=== PATIENT | male | born 1990 | race Caucasian/White ===

== ENCOUNTER 2020-05-03 15:02 | Inpatient (IN) ==
--- NOTE | 2020-05-03 15:32 | Emergency Department Note ---
Impression & Plan Suicidal ideation, History of ETOH abuse, COVID-19, Elevated blood pressure reading ED Provider Note NAME: TRACI INMAN AGE: 30 SEX: M : 1990 ARRIVES VIA: Walk-In INFORMANT: Patient ED PROVIDER(S): French Caceres DO CHIEF COMPLAINT: Suicidal ideations HPI: Patient is a 30-year-old male who presents ER for suicidal thoughts. He notes he stopped drinking about 2 months ago and his fiance left him with his kids about 3 weeks ago. He has been gradually getting more depressed. He has a plan to overdose with sleeping pills and alcohol. He denies any headache or change in vision. No chest pain or shortness of breath. No belly pain, nausea, vomiting or diarrhea. No other exacerbating or remitting factors. He does want to come in for further work-up. ROS: See above HPI for pertinent positives & negatives. A total of 10 systems reviewed and were otherwise negative. PAST MEDICAL HISTORY:See Below PAST SURGICAL HISTORY:See Below FAMILY HISTORY:See Below SOCIAL HISTORY:See Below HOME MEDICATIONS:See Below ALLERGIES:See Below VITALS:See Below PHYSICAL EXAMINATION: GENERAL: Sitting up in bed, alert, well appearing, well nourished, no distress, non-toxic EYE EXAM: normal conjunctiva. OROPHARYNX: no exudate, no erythema, lips, buccal mucosa, and tongue normal and mucous membranes are moist NECK: supple, no nuchal rigidity, no adenopathy, non-tender LUNGS: Clear to auscultation. Normal chest wall mechanics HEART: no murmurs, S1 normal and S2 normal ABDOMEN: abdomen soft, non-tender, normo-active bowel sounds, no masses, no rebound or guarding. UPPER EXTREMITIES: upper extremities are grossly normal. LOWER EXTREMITIES: No pitting edema. NEURO EXAM: Normal sensorium, cranial nerves II-XII grossly intact, normal speech, no gross weakness of arms, no gross weakness of legs. PSYCH: Admits to suicidal ideations with a plan to overdose on alcohol and sleeping pills MEDICAL DECISION MAKING: Patient is a 30-year-old male who presents ER for suicidal plan. Labs were obtained and showed no significant leukocytosis or anemia. BMP with slightly elevated chloride. LFTs bilirubin and TSH was unremarkable. Urine was negative. Salicylates were slightly elevated 2.3. Acetaminophen was negative. Covid was positive. Marijuana was positive. Patient initially would prefer to go home but was agreeable to coming in after further discussion as he did have suicidal thoughts with a clear plan and has thought it through. Patient however cannot go to the psych floor as he is Covid positive and will be admitted to medicine. Discussed with Dr. Busby for further evaluation. Triage Nursing notes reviewed. Limited review of prior medical records performed Vital Signs: reviewed and remarkable for HTN Differential diagnosis: Mood disorder, infection, hypoglycemia, electrolyte abnormalities, cardiac sources, intracerebral event, toxicologic, trauma, neurologic, as well as other pathologies. ER treatment provided: See below Diagnostics interpreted by me: ECG: none Laboratory studies: As stated above and show below. Imaging studies: none Consultation(s): Discussed with Dr. 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 Required: No Beliefs That Will Affect Care: None marital status: Single Current Living Situation: Spouse current occupational status: employed How many Children do You have: 2 Feels Safe at Home: Yes Assistive Devices: None Allergies Allergies Allergy/AdvReac Type Severity Reaction Status Date / Time No Known Allergies Unverified 05/03/20 16:26 Home Meds Home Medications Medication Instructions Recorded Confirmed No Known Home Medications 05/03/20 05/03/20 Results & Data (ED) Vital Signs Vital Signs - 24 hr 05/03/20 15:13 Temperature 37.3 C Temperature Source Oral Pulse Rate 90 Respiratory Rate 18 Respiratory Effort / Characteristics Non-Labored Spontaneous Respiratory Depth Normal Blood Pressure 163/103 H Blood Pressure Mean 123 Blood Pressure Position Sitting Pulse Oximetry 98 Oxygen Delivery Method Room Air Sepsis Recent Fever Within 48 Hours No Sepsis New/Unexplained Change in Mental Status No Sepsis Action Taken by Nursing No Action Required Laboratory Data Result diagrams: 05/03/20 16:17 05/03/20 16:17 Lab Results 05/03/20 05/03/20 05/03/20 Range/Units 15:30 15:30 15:52 WBC (4.8-10.8) K/uL RBC (4.7-6.1) M/uL Hgb (14.0-18.0) g/dL Hct (42-52) % MCV (80-100) fL MCH (25-34) pg MCHC (32-36) g/dL RDW Std Deviation (36.4-46.3) fL RDW Coeff of Meño (11.5-14.5) % Plt Count (130-400) K/uL MPV (7.4-10.4) fL Immature Gran % (Auto) % Neut % (Auto) % Lymph % (Auto) % [place] % (Auto) % Eos % (Auto) % Baso % (Auto) % Neut # (Auto) (1.4-6.5) K/uL Lymph # (Auto) (1.2-3.4) K/uL [place] # (Auto) (0.11-0.59) K/uL Eos # (Auto) (0-0.5) K/uL Baso # (Auto) (0-0.2) K/uL Immature Gran # (Auto) (0.00-0.02) K/uL Sodium (136-145) mmol/L Potassium (3.5-5.1) mmol/L Chloride (98-107) mmol/L Carbon Dioxide (21-32) mmol/L Anion Gap (3-11) BUN (7-18) mg/dl Creatinine (0.6-1.4) mg/dl Est Cr Clr Drug Dosing ml/min Est GFR ( Amer) Est GFR (Non-Af Amer) BUN/Creatinine Ratio (10-20) Glucose (70-99) mg/dl Calcium (8.5-10.1) mg/dl Total Bilirubin (0.2-1) mg/dl AST (15-37) U/L ALT (12-78) U/L Alkaline Phosphatase (45-117) U/L Total Protein (6.4-8.2) gm/dl Albumin (3.4-5.0) gm/dl Globulin (2.5-4.0) gm/dl Albumin/Globulin Ratio (0.9-2) TSH (0.300-4.500) uIu/ml Urine Color Yellow Urine Appearance Clear (Clear) Urine pH 7.0 (4.5-7.5) Ur Specific [place] 1.015 (1.000-1.030) Urine Protein Negative (Negative) Urine Glucose (UA) Negative (Negative) Urine Ketones 1+ H (Negative) Urine Blood Negative (Negative) Urine Nitrite Negative (Negative) Urine Bilirubin Negative (Negative) Urine Urobilinogen Negative (Negative) Ur Leukocyte Esterase Negative (Negative) Salicylates (2.8-20) mg/dl Urine Opiates Screen Neg (Neg) Ur Methadone, Qual Neg (Neg) Acetaminophen (10-30) ug/ml Urine Barbiturates Neg (Neg) Ur Phencyclidine (PCP) Neg (Neg) U Amphetamin/Meth Scrn Neg (Neg) MDMA (Ecstasy) Screen Neg (Neg) U Benzodiazepines Scrn Neg (Neg) Ur Cocaine Metabolite Neg (Neg) U Marijuana (THC) Screen Pos H (Neg) Ethyl Alcohol mg/dL (0-3) mg/dl SARS-CoV-2, RNA, NAAT POSITIVE A* (NEGATIVE) 05/03/20 05/03/20 05/03/20 Range/Units 16:17 16:17 16:17 WBC 4.93 (4.8-10.8) K/uL RBC 5.30 (4.7-6.1) M/uL Hgb 16.4 (14.0-18.0) g/dL Hct 47.0 (42-52) % MCV 88.7 (80-100) fL MCH 30.9 (25-34) pg MCHC 34.9 (32-36) g/dL RDW Std Deviation 39.6 (36.4-46.3) fL RDW Coeff of Meño 12.3 (11.5-14.5) % Plt Count 210 (130-400) K/uL MPV 9.9 (7.4-10.4) fL Immature Gran % (Auto) 0.2 % Neut % (Auto) 58.0 % Lymph % (Auto) 26.0 % [place] % (Auto) 15.6 % Eos % (Auto) 0.0 % Baso % (Auto) 0.2 % Neut # (Auto) 2.86 (1.4-6.5) K/uL Lymph # (Auto) 1.28 (1.2-3.4) K/uL [place] # (Auto) 0.77 H (0.11-0.59) K/uL Eos # (Auto) 0.00 (0-0.5) K/uL Baso # (Auto) 0.01 (0-0.2) K/uL Immature Gran # (Auto) 0.01 (0.00-0.02) K/uL Sodium 141 (136-145) mmol/L Potassium 3.7 (3.5-5.1) mmol/L Chloride 108 H (98-107) mmol/L Carbon Dioxide 26 (21-32) mmol/L Anion Gap 7.0 (3-11) BUN 11 (7-18) mg/dl Creatinine 0.99 (0.6-1.4) mg/dl Est Cr Clr Drug Dosing 131.1 ml/min Est GFR ( Amer) 118.0 Est GFR (Non-Af Amer) 101.8 BUN/Creatinine Ratio 11.0 (10-20) Glucose 98 (70-99) mg/dl Calcium 9.1 (8.5-10.1) mg/dl Total Bilirubin 0.4 (0.2-1) mg/dl AST 25 (15-37) U/L ALT 52 (12-78) U/L Alkaline Phosphatase 90 (45-117) U/L Total Protein 8.4 H (6.4-8.2) gm/dl Albumin 4.7 (3.4-5.0) gm/dl Globulin 3.7 (2.5-4.0) gm/dl Albumin/Globulin Ratio 1.3 (0.9-2) TSH 2.050 (0.300-4.500) uIu/ml Urine Color Urine Appearance (Clear) Urine pH (4.5-7.5) Ur Specific [place] (1.000-1.030) Urine Protein (Negative) Urine Glucose (UA) (Negative) Urine Ketones (Negative) Urine Blood (Negative) Urine Nitrite (Negative) Urine Bilirubin (Negative) Urine Urobilinogen (Negative) Ur Leukocyte Esterase (Negative) Salicylates 2.3 L (2.8-20) mg/dl Urine Opiates Screen (Neg) Ur Methadone, Qual (Neg) Acetaminophen < 2 L (10-30) ug/ml Urine Barbiturates (Neg) Ur Phencyclidine (PCP) (Neg) U Amphetamin/Meth Scrn (Neg) MDMA (Ecstasy) Screen (Neg) U Benzodiazepines Scrn (Neg) Ur Cocaine Metabolite (Neg) U Marijuana (THC) Screen (Neg) Ethyl Alcohol mg/dL (0-3) mg/dl SARS-CoV-2, RNA, NAAT (NEGATIVE) 05/03/20 Range/Units 16:17 WBC (4.8-10.8) K/uL RBC (4.7-6.1) M/uL Hgb (14.0-18.0) g/dL Hct (42-52) % MCV (80-100) fL MCH (25-34) pg MCHC (32-36) g/dL RDW Std Deviation (36.4-46.3) fL RDW Coeff of Meño (11.5-14.5) % Plt Count (130-400) K/uL MPV (7.4-10.4) fL Immature Gran % (Auto) % Neut % (Auto) % Lymph % (Auto) % [place] % (Auto) % Eos % (Auto) % Baso % (Auto) % Neut # (Auto) (1.4-6.5) K/uL Lymph # (Auto) (1.2-3.4) K/uL [place] # (Auto) (0.11-0.59) K/uL Eos # (Auto) (0-0.5) K/uL Baso # (Auto) (0-0.2) K/uL Immature Gran # (Auto) (0.00-0.02) K/uL Sodium (136-145) mmol/L Potassium (3.5-5.1) mmol/L Chloride (98-107) mmol/L Carbon Dioxide (21-32) mmol/L Anion Gap (3-11) BUN (7-18) mg/dl Creatinine (0.6-1.4) mg/dl Est Cr Clr Drug Dosing ml/min Est GFR ( Amer) Est GFR (Non-Af Amer) BUN/Creatinine Ratio (10-20) Glucose (70-99) mg/dl Calcium (8.5-10.1) mg/dl Total Bilirubin (0.2-1) mg/dl AST (15-37) U/L ALT (12-78) U/L Alkaline Phosphatase (45-117) U/L Total Protein (6.4-8.2) gm/dl Albumin (3.4-5.0) gm/dl Globulin (2.5-4.0) gm/dl Albumin/Globulin Ratio (0.9-2) TSH (0.300-4.500) uIu/ml Urine Color Urine Appearance (Clear) Urine pH (4.5-7.5) Ur Specific [place] (1.000-1.030) Urine Protein (Negative) Urine Glucose (UA) (Negative) Urine Ketones (Negative) Urine Blood (Negative) Urine Nitrite (Negative) Urine Bilirubin (Negative) Urine Urobilinogen (Negative) Ur Leukocyte Esterase (Negative) Salicylates (2.8-20) mg/dl Urine Opiates Screen (Neg) Ur Methadone, Qual (Neg) Acetaminophen (10-30) ug/ml Urine Barbiturates (Neg) Ur Phencyclidine (PCP) (Neg) U Amphetamin/Meth Scrn (Neg) MDMA (Ecstasy) Screen (Neg) U Benzodiazepines Scrn (Neg) Ur Cocaine Metabolite (Neg) U Marijuana (THC) Screen (Neg) Ethyl Alcohol mg/dL < 3.0 (0-3) mg/dl SARS-CoV-2, RNA, NAAT (NEGATIVE) Administered Medications Discontinued Medications Amlodipine Besylate (Amlodipine Besylate 5 Mg Tab) 5 mg PO NOW ONE Stop: 05/03/20 18:15 Last Admin: 05/03/20 19:02 Dose: Not Given Documented by: [id number] Discharge Plan Visit Data Chief Complaint: Mental Health Evaluation Stated Complaint: [facility] ED Provider: French Caceres Discharge Problem: Suicidal ideation, History of ETOH abuse, COVID-19, Elevated blood pressure reading
[2020-05-03 15:45] LABS: Appearance Urine Clear (Clear); Bilirubin Urine Negative (Negative); Blood Urine Negative (Negative); Color Urine Yellow; Glucose Urine UA Negative (Negative); Ketones Urine 1+ (Negative); Leukocyte Esterase Urine Negative (Negative); Nitrite Urine Negative (Negative); Protein Urine Negative (Negative); Specific Gravity Urine 1.015 (1.000-1.030); Urobilinogen Urine Negative (Negative)
[2020-05-03 16:06] LABS: Amphetamines+Metham, Urine Neg (Neg); Barbiturates, Urine Neg (Neg); Benzodiazepine, Urine Neg (Neg); Cocaine, Urine Neg (Neg); MDMA (Ecstacy), Urine Neg (Neg); Methadone, Urine Neg (Neg); Opiate, Urine Neg (Neg); Phencyclidine, Urine Neg (Neg)
[2020-05-03 16:31] LABS: Basophils # (auto) 0.01 K/uL (0-0.2); Basophils % (auto) 0.2 %; Hemoglobin 16.4 g/dL (14.0-18.0); Immature Granulocytes # (auto) 0.01 K/uL (0.00-0.02); Immature Granulocytes % (auto) 0.2 %; Lymphocytes # (auto) 1.28 K/uL (1.2-3.4); Mean Corpuscular Hemoglobin 30.9 pg (25-34); Mean Corpuscular Hgb Conc 34.9 g/dL (32-36); Mean Corpuscular Volume 88.7 fL (80-100); Mean Platelet Volume 9.9 fL (7.4-10.4); Monocytes # (auto) 0.77 K/uL (0.11-0.59); Monocytes % (auto) 15.6 %; Neutrophils # (auto) 2.86 K/uL (1.4-6.5); Platelet Count 210 K/uL (130-400); RDW Coefficient of Variation 12.3 % (11.5-14.5); RDW Standard Deviation 39.6 fL (36.4-46.3); White Blood Count 4.93 K/uL (4.8-10.8)
[2020-05-03 16:52] LABS: Albumin Level 4.7 gm/dl (3.4-5.0); Calcium 9.1 mg/dl (8.5-10.1); Creatinine Clr Calc Pharmacy 131.1 ml/min; Est GFR (Non-African American) 101.8; Potassium 3.7 mmol/L (3.5-5.1)
[2020-05-03 16:59] LABS: Acetaminophen < 2 ug/ml (10-30); Salicylate 2.3 mg/dl (2.8-20)
[2020-05-03 17:02] LABS: Albumin Globulin Ratio 1.3 (0.9-2); Bilirubin,Total 0.4 mg/dl (0.2-1); Globulin 3.7 gm/dl (2.5-4.0); Thyroid Stimulating Hormone 2.05 uIu/ml (0.300-4.500); Total Protein 8.4 gm/dl (6.4-8.2)
--- NOTE | 2020-05-03 17:09 | History & Physical Report ---
Date of Service May 03, 2020 Assessment & Plan (1) COVID-19: (2) Suicidal ideation: (3) History of ETOH abuse: (4) Depression: (5) Elevated blood pressure reading: (6) Attention deficit hyperactivity disorder: This is a 30 year old M with significant PMH of ADHD and alcohol abuse who presents to ED 2/2 to suicidal ideations x 1 day. admit to med/surg no active covid sx - monitor vital signs q shift and pulse ox covid and suicide precautions consult psych - Dr. Schaeffer one to one observation Pt BP is elevated - per outpt record BP in office 04/2019 140-50/90s currently not on any medications add prn clonidine 0.1mg tid if SBP > 170/DBP > 100 may be in setting of anxiousness FULL CODE Disposition: admit to med/surg given +covid status Follow up: PCP Dr. Ramírez upon discharge Pt was seen and examined in collaboration with Dr. Busby, please see addendum History of Present Illness Chief Complaint: suicidal ideations x 1 day. Primary Care Provider: Etienne Ramírez MD This is a 30 year old M with significant PMH of ADHD and alcohol abuse who presents to ED 2/2 to suicidal ideations x 1 day. He has been undergoing a lot of stress and recently became more depressed. His last alcoholic drink was 2 months ago. Recently his fiance left him as well as his kids. Continuing to get more depressed. His plan would be to, "take a bunch of sleeping pills and alcohol." He has never felt like this in the past. He denies any recent illness, f/c/s, chest pain, sob, cough, n/v/d, abdominal pain, change in bowel or urinary habits. In ED he did test positive for SARS-COV2. Hospitalist service requested to admit due to +Covid. Lab work up unremarkable with CBC, CMP and TSH, but urine +THC. Of significance pt has an aversion to medications. States he medicates with marijuana. Has daily headaches. Hx of HTN in the past and his mother used to, "push meds." Is refusing to take medications. Allergies Allergy/AdvReac Type Severity Reaction Status Date / Time No Known Allergies Unverified 05/03/20 16:26 Home Medications Medication Instructions Recorded Confirmed Type No Known Home Medications 05/03/20 05/03/20 History Past Med/Surg History Medical History (Updated 05/03/20 @ 17:49 by Lynn Magana PA-C) Attention deficit disorder Surgical History History of tooth extraction wisdom teeth Family History (Updated 05/03/20 @ 17:04 by Lynn Magana PA-C) Other Hypertension Social History Smoking Status: Never smoker Second Hand Exposure: No; Hx Alcohol Use: Yes Alcohol type: beer Hx Substance Use: Yes Substance Use Type Other:: smokes marijuana daily Preferred Language: Tongan Communication Ability: Effective Parts Cataloger Required: No Beliefs That Will Affect Care: None marital status: Single Current Living Situation: Spouse current occupational status: employed How many Children do You have: 2 Feels Safe at Home: Yes Assistive Devices: None Review of Systems Review of Systems: All systems reviewed & are unremarkable except as noted in HPI & below Physical Exam Physical Exam: please refer to Dr. Busby addendum for physical exam findings Results & Data Results & Data ([facility]) Vital Signs (Past 12 Hours) Vital Signs Temp Pulse Resp BP Pulse Ox 05/03/20 15:13 37.3 C 90 18 163/103 H 98 COVID-19 Results Results COV- Lab Results: RBC 5.30 M/uL (4.7-6.1) 05/03/20 WBC 4.93 K/uL (4.8-10.8) 05/03/20 Hgb 16.4 g/dL (14.0-18.0) 05/03/20 Hct 47.0 % (42-52) 05/03/20 Plt Count 210 K/uL (130-400) 05/03/20 Neutrophils (%) (Auto) 58.0 % 05/03/20 Lymphocytes (%) (Auto) 26.0 % 05/03/20 Monocytes # (Auto) 0.77 K/uL (0.11-0.59) H 05/03/20 Eosinophils # (Auto) 0.00 K/uL (0-0.5) 05/03/20 Immature Granulocyte % (Auto) 0.2 % 05/03/20 Neutrophils # (Auto) 2.86 K/uL (1.4-6.5) 05/03/20 Lymphocytes # (Auto) 1.28 K/uL (1.2-3.4) 05/03/20 Monocytes # (Auto) 0.77 K/uL (0.11-0.59) H 05/03/20 Eosinophils # (Auto) 0.00 K/uL (0-0.5) 05/03/20 Basophils # (Auto) 0.01 K/uL (0-0.2) 05/03/20 Immature Granulocyte # (Auto) 0.01 K/uL (0.00-0.02) 05/03/20 Na 141 mmol/L (136-145) 05/03/20 K 3.7 mmol/L (3.5-5.1) 05/03/20 Cl 108 mmol/L (98-107) H 05/03/20 CO2 26 mmol/L (21-32) 05/03/20 Anion Gap 7.0 (3-11) 05/03/20 BUN 11 mg/dl (7-18) 05/03/20 Creatinine 0.99 mg/dl (0.6-1.4) 05/03/20 BUN/Creatinine Ratio 11.0 (10-20) 05/03/20 Glucose Level 98 mg/dl (70-99) 05/03/20 Ca 9.1 mg/dl (8.5-10.1) 05/03/20 Total Bilirubin 0.4 mg/dl (0.2-1) 05/03/20 AST/SGOT 25 U/L (15-37) 05/03/20 ALT/SGPT 52 U/L (12-78) 05/03/20 Alkaline Phosphatase 90 U/L (45-117) 05/03/20 Total Protein 8.4 gm/dl (6.4-8.2) H 05/03/20 Albumin 4.7 gm/dl (3.4-5.0) 05/03/20 Globulin 3.7 gm/dl (2.5-4.0) 05/03/20 Albumin/Globulin Ratio 1.3 (0.9-2) 05/03/20 SARS-CoV-2, RNA, NAAT POSITIVE (NEGATIVE) A* 05/03/20 SARS-CoV-2 Ag (Rapid) Positive (Negative) A* 05/03/20 Chest X-Ray 05/03/20 Code Status & VTE Plan Code Status Full Code VTE Prophylaxis Plan VTE Prophylaxis will be ordered: No Reason for no VTE drug order: Treatment not indicated Reason for no VTE mechanical prophylaxis: Treatment not indicated Supervising Physician Co-Signing Physician Notes Attending addendum: The patient was seen and examined in emergency room He is a 30-year-old male with significant past medical history of bipolar disorder with depression and is not on any medication came to ER with suicidal ideation He denied any symptoms but noted to be positive for COVID-19 and then telemedicine doc was consulted On examination Hemodynamically stable with high blood pressure of systolic 165 and diastolic 111 Chest-clear to auscultate bilaterally Heart-S1-S2 regular no murmur, Abdomen soft-nontender,, bowel sound present Extremities-negative for any edema 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 He will be admitted to Covid unit but will not require any treatment as of now. Eleveted BP-Will try Clonidine PRN Psychiatrist has been consulted and will be seen by this evening. Refuses treatment plan as outlined above by ARNAUD [place] Dr
[2020-05-03] MEDS ORDERED: amLODIPine BESYLATE 5 MG TAB PO ONE (18:14)
--- NOTE | 2020-05-03 18:34 | XRay Report ---
XR chest 1V portable CLINICAL HISTORY: Cough and shortness of breath COMPARISON STUDY: 01/16/2013 FINDINGS: The heart is at the upper limits of normal in size. There is no failure. No focal pulmonary consolidation. There are no pleural effusions.[ IMPRESSION: No active disease in the chest. ACT 112: Negative or not required by law. Electronically signed by: Jorge Nogueira M.D. 05/03/2020 6:33 PM
[2020-05-03] MEDS ORDERED: ACETAMINOPHEN 325 MG TAB PO PRN (19:32)
[2020-05-03] MEDS ORDERED: ALUMINUM/MAGNESIUM SUSP 30 ML UDC PO PRN (19:32)
[2020-05-03] MEDS ORDERED: cloNIDine HCL 0.1 MG TAB PO PRN (19:32)
[2020-05-03] MEDS ORDERED: POLYETHYLENE (MIRALAX) 17 GM PACK PO PRN (19:32)
[2020-05-03] MEDS ORDERED: ONDANSETRON INJ 2 MG/ML 2 ML VIAL IV PRN (19:32)
[2020-05-03] MEDS ORDERED: MAGNESIUM HYDROXIDE SUSP 30 ML UDC PO PRN (19:32)
[2020-05-03] MEDS ORDERED: LORazepam 1 MG TAB PO STA (19:49)
--- NOTE | 2020-05-04 10:51 | Psychiatric Consultation ---
Date of Consultation May 04, 2020 Impression / Recommendations Impression Dr. Sylvia Olivo was directly involved in review and discussion of the patient's case and participated in medical decision making regarding treatment recommendations. RECOMMENDATIONS: 05/04 - Psychiatric consultation requested to evaluate patient for suicidality. Pt presented to ED for mental health evaluation, having been brought to the ED by police. Due to patient's COVID+ status, he was admitted medically to the COVID unit with psychiatric service following closely to assist with safety and discharge planning. - Pt denies suicidality presently, but events occurring prior to admission are a bit more concerning than initially reported. Pt admits that he had thoughts to end his life, and is now sharing that he did purchase a bottle of melatonin with the specific intent to overdose on the medication (believing this action could have lethal consequences). Pt will require thorough safety planning prior to discharge to ensure he is not at acute risk of harm to self or others at the time he is discharged. Recommend ongoing medical admission for monitoring of safety and mood until these steps can be taken. - Pt did agree to a phone meeting with his mother to discuss safety and discharge planning. Specifically, we anticipate discussing recommendation for outpatient treatment, securing medications, securing/removing guns and other weapons in home, and involving his mother as part of his support network. - Pt did agree to referral for outpatient therapy at [facility] - we will assist with securing an appointment to continue outpatient treatment. - At present, patient is declining to consider psychotropic medications. He denies depressive symptoms prior to 3 weeks ago when his significant other left the home. He admits to feeling depressed at that time, but denies other periods of persistently depressed mood or specific anxiety concerns. Medication options could be considered if mood symptoms worsen or suicidality recurs. First-line treatment would include reasonable trial of an SSRI to target depressive symptoms. If desired, we are happy to discuss during his stay. Otherwise, patient would likely be able to get medication management through [facility] as well. - There is a 302 petitioning statement on the patient's chart. Should patient demand to leave [place], we would encourage contacting [employer] delegates to secure a 302 warrant until medically cleared or until safe and appropriate discharge plans are in place. We are happy to assist with this process as needed. - We appreciate the opportunity to participate in the care of this patient. Please reach out to our service with any additional questions or updates. (1) Suicidal ideation: (2) Acute stress reaction causing mixed disturbance of emotion and conduct: (3) History of ETOH abuse: (4) COVID-19: Risk Factors Assessment Do You Have Access To A Gun?: Yes (admits to owning several guns) Psych History Identifying Data 30-year-old male admitted medically on 05/03/2020 after presenting to the ED via police after reaching out to crisis services to express suicidal ideation. Pt reported plan to overdose on sleeping pills and alcohol. During work-up for medical clearance for psychiatric referrals, the patient was found to be COVID positive and therefore admitted to the COVID unit with psychiatric consultation. Conversation with patient was conducted via phone call to the patient's room, given his COVID+ status. Pt is aware of and agreeable with the visit being conducted in this manner. Two unique identifies were utilized to confirm patient's identity. Chief Complaint "What was the issue? Her taking the kids." History of Present Illness Sanjay Joyner is a 30-year-old male admitted medically on 05/03/2020 after presenting to the ED with reports of suicidal ideation and plan to overdose on "sleeping pills" and alcohol. Pt was in the process of medical work-up for clearance for inpatient psychiatric referrals when he was found to be positive for COVID-19. Due to this, the patient was admitted medically to the COVID unit where he could be monitored closely for safety concerns, and psychiatric service was consulted to engage the patient is treatment and discuss safety and discharge planning. 302 petitioning statement was completed in the ED by behavioral health case manager, and reads: " The patient presented to [facility] with suicidal ideation and a plan to overdose on "sleeping pills and a bottle of whiskey." The patient reports his suicidal ideation has worsened since he stopped drinking 2 months ago and his fiance/mother of his children left 3 weeks ago." Upon conversation with the patient, there appears to be more to his presentation than he initially reported. The patient states he started experiencing more depressed mood after his significant other left him and their two children about 3 weeks ago. The patient states he had difficulty coping with caring for the children and attending work, which has contributed to his stress. Pt states that the day of admission his significant other had reached out to request custody of the children. He tells this provider that suicidal ideation developed as "I wanted to hurt her like she hurt me." The patient clarifies that he means emotionally, and that he did not have plan or intent to physically harm his significant other or their children. He does states "I think I wanted her to experience the pain of me being gone." Pt does state that not only did he have a plan to overdose on sleeping pills, but he actually went to the store and purchased a bottle of #30 tablets of melatonin with the specific intent to overdose on the medication. He did imagine this action could be lethal. Pt states that as he "prepared to take the medication" he had realized that this action would likely result in him never seeing his children again. Pt states he realized he did not want to end his life, and therefore texted crisis services. Pt states that since he perceived the risk of harm to be low, he stopped responding to the messages being sent by the marble chip terrazzo worker. 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 Prior to his significant other leaving, he describes his mood as "happier than a pig in horse shit. My wasn't a super model, but she's a model to me. I had a great life, a great , a great house, great kids. I'm not saying I look down on people, but my pedestal is so high up, we want for nothing." This provider did inquire about what led to their recent separation if patient perceives his life to be so positive. He then admits that he does occasionally text or talk to other women, and believes this is the reason that his significan t other moved out. Pt also admits that his alcohol use has been a pretty significant problem. He states he has consumed alcohol daily since high school, but has been working on maintaining sobriety - now 2 months sober. He does admit to daily marijuana use "for my nerves", and states he wants to focus on eliminating marijuana "after I've been off alcohol for a full year." Pt denies SI at this time, and is agreeing to referrals for outpatient therapy. He is denying medications to target his mood, stating "I'm not a pill person, I don't like to be on pills everyday. And frankly, I don't think I need 'em." Pt did inquire about expected length of stay. Goals of treatment were discussed. He was also encouraged to consider a family meeting via phone to address safety and discharge planning with outpatient supports. Pt denied other needs at this time. He was given the contact information for our unit and was encouraged to reach out with specific questions. Otherwise, we would be calling his room regularly to check in. Past Psychiatric History Current Psychiatric Diagnosis: Denies; previous hx of treatment for ADHD Outpatient Services: None presently, reports he has had therapy in the past. Previous Psych Admissions: None Do You Have Access To A Gun?: Yes (admits to owning several guns) History of Previous Suicide Attempt: No Past Medication Trials: Previous history of treatment ADHD - Concerta, Ritalin, Adderall States he had trialed an unknown antidepressant medication ~2 months ago for a 2 week duration, but stopped taking when "it didn't work." Allergies Allergy/AdvReac Type Severity Reaction Status Date / Time No Known Allergies Unverified 05/03/20 16:26 Home Medications Medication Instructions Recorded Confirmed Type No Known Home Medications 05/03/20 05/03/20 History Substance Abuse History Pt admits to excessive alcohol use since high school. Drinking had been daily and to the point of "passing out." The patient states he has been sober for the past 2 months and is hoping to continue with this trend. 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 Pt has significant fines. There are also charges fro vandalism, assault, and destruction of property. Psychological Trauma History Comment: states "I've seen a lot of deaths." Patient History Medical History (Updated 05/04/20 @ 12:47 by Davina Hudson PA-C) Attention deficit disorder Surgical History History of tooth extraction wisdom teeth Family History Other Hypertension Social History Smoking Status: Former smoker Second Hand Exposure: No; Do You Dip or Chew Tobacco: No; Hx Alcohol Use: Yes Alcohol type: beer Hx Substance Use: Yes Last Used Substance: Just Prior to Arrival Substance Use Type Other:: smokes marijuana Preferred Language: Ukrainian Communication Ability: Effective Choral Teacher Required: No marital status: Single Current Living Situation: Alone Current Living Situation Comment: recent split w/ fiance current occupational status: employed How many Children do You have: 2 Feels Safe at Home: Yes Assistive Devices: None Physical Exam Psychiatric: Orientation: alert, oriented x 3 and cooperative (superficially; pleasant, but minimizing his reaction to recent stressors) Speech: normal rate/rhythm/volume of speech Mood: + depressed mood (since SO left 3-weeks ago) Thought Process: goal directed thought process and clear/coherent thought process Thought Content: reality based without delusions; no hopelessness and no worthlessness Suicidal Thoughts: denies suicidal thoughts (at time of conversation) Homicidal Thoughts: denies homicidal thoughts admits he wanted to cause his significant other emotional pain, but denies intent or plan to physically harm her or their children. Hallucinations: no auditory hallucinations and no visual hallucinations Cognition: attention grossly intact and language grossly intact Estimated Intelligence: consistent with education level Insight: + poor insight Judgement: + poor judgement Vital Signs (Past 24 Hours): Last Vital Signs Temp 36.9 C 05/03/20 22:53 Pulse 79 05/03/20 22:53 Resp 20 05/03/20 22:53 BP 154/102 H 05/04/20 10:44 Pulse Ox 99 05/03/20 22:53 Exam Statement: Visual aspects of physical examination are unable to be assessed due to evaluation being conducted over the phone. Review of Systems Constitutional: denied Cardiovascular: denied Respiratory: denied Gastrointestinal: denied Neurological: denied Psychiatric: denies symptoms other than stated above Total of at least 10 systems reviewed, pertinent positives as above and in HPI. Results & Data (PSY) Medications Administered Clonidine HCl (Clonidine Hcl 0.1 Mg Tab) 0.1 mg PO TID PRN PRN Reason: Hypertension Stop: 06/02/20 19:31 Last Admin: 05/04/20 00:32 Dose: 0.1 mg Documented by: [id number] Coding Level of Care Code 45421 [facility] Intl Hosp Care Lvl 3 Diagnoses Suicidal ideation R45.851 Acute stress reaction causing mixed disturbance of emotion and conduct F43.0 History of ETOH abuse F10.11 COVID-19 U07.1 Comment Tele-health visit: due to COVID+ status and COVID-19 emergency precautions
--- NOTE | 2020-05-04 15:12 | Hospitalist Progress Note ---
Date of Service May 04, 2020 Assessment & Plan (1) COVID-19: Asymptomatic. CXR is clear. No oxygen requirements. No indication for treatment or supportive care efforts at this time. May be a candidate for outpatient Mab infusion, however, he would need to check with his dr horn. (2) Suicidal ideation: Patient reports he is no longer suicidal. Need additional time to ensure solid discharge plan is in place from a mental health standpoint. Patient verbalizes understanding of this. (3) History of ETOH abuse: Sober for the past tow months and reportedly smokes marijuana daily. Pt received Ativan last night with improvement, however, we discussed why benzos are not a good option for him. Vistaril PRN. (4) Elevated blood pressure reading: Likely related to withdrawal from marijuana and/or stress from the situation. With ongoing elevated readings will consider starting monotherapy on discharge. Will review outpatient records for a trend. (5) Attention deficit hyperactivity disorder: has a h/o medication use for this but currently he is not medicated. (6) Marijuana dependence: Treat anxiety PRN with Vistaril. Ativan only for severe symptoms. (7) DVT prophylaxis: DVT proph-SCDs/ambulation Dull Code Dispi-to home in am once solid psychiatric followup care is in place. Amada Godoy DO [facility] Hospitalist Admission and Anticipated Discharge Date Admission Date: May 03, 2020 Subjective 30 yo M recently two months sobor from alcohol, using daily marijuana reportedly to cope with initial alcohol withdrawal, having multiple family issues ongoing including custody issues with his children and a recent split with his significant other within the last few weeks. Presented with suicidal ideations initially voluntarily seeking help-referral to [facility] for outpatient but no discharge plan is in place. No aftercare in place so would apply for 302 warrant if patient decides against staying until this is in place. Has a h/o ADHD in the past but not currently on medication for this, no current medications for depression at home, h/o anger issues in the past. No known h/o suicidal attempts or mental health inpatient treatment. After asking me about a discharge plan by phone, I told him likely tomorrow based on my cursory knowledge of the situation. I also informed him that his children were not allowed to visit the hospital per current visitation policy including the fact that he is in the covid unit. He told me that he didn't believe children could be infected with covid-19 and that no one could stop him from being with them once he was discharged from the hospital. I asked if he had any further questions, and he said no and I then was told by him that I ruined his whole day prior to hanging up the phone. I was then paged by the nurse regarding patient anxiousness and restlessness following the phone call. She reported offering him to ambulate in the braga but he declined. I was then notified by the nurse that he had one episode of vomiting with nausea that was not persistent. I advised against medicating him at this time. Review of Systems Review of Systems: All systems reviewed & are unremarkable except as noted in Subjective Physical Exam Physical Exam: CONSTITUTIONAL: WNWD, vitals as above, generally well- appearing EYES: normal conjunctivae, no scleral icterus ENT: external ear and nose normal, MMM RESPIRATORY: clear to auscultation bilaterally, no crackles, rales or wheezes, normal respiratory effort CARDIOVASCULAR: regular rate and rhythm, S1 and 2 heard without murmurs, gallops or rubs, no JVD, no peripheral edema GASTROINTESTINAL: soft, nontender, nondistended, no guarding MUSCULOSKELETAL: strength 5/5 throughout, head is normocephalic and atraumatic SKIN: warm and dry NEUROLOGIC: No facial palsy, no dysarthria. CN 2-12 grossly intact, no sensory deficit, normal cognition, normal speech, no tremor PSYCHIATRIC: alert cooperative and oriented to person, place and time. Results & Data Results & Data ([facility]) Vital Signs (Past 12 Hours) Vital Signs Temp Pulse Resp BP BP Pulse Ox 05/04/20 15:02 36.0 C L 79 18 152/97 H 98 05/04/20 10:44 154/102 H Laboratory Results Short CBC 05/03/20 Range/Units 16:17 WBC 4.93 (4.8-10.8) K/uL Hgb 16.4 (14.0-18.0) g/dL Hct 47.0 (42-52) % Plt Count 210 (130-400) K/uL BMP 05/03/20 16:17 Sodium 141 Potassium 3.7 Chloride 108 H Carbon Dioxide 26 BUN 11 Creatinine 0.99 Glucose 98 Calcium 9.1 Liver Function 05/03/20 Range/Units 16:17 Total Bilirubin 0.4 (0.2-1) mg/dl AST 25 (15-37) U/L ALT 52 (12-78) U/L Alkaline Phosphatase 90 (45-117) U/L Albumin 4.7 (3.4-5.0) gm/dl Urine 05/03/20 Range/Units 15:30 Urine Color Yellow Urine Appearance Clear (Clear) Urine pH 7.0 (4.5-7.5) Ur Specific [place] 1.015 (1.000-1.030) Urine Protein Negative (Negative) Urine Glucose (UA) Negative (Negative) Medications Administered Current Inpatient Medications Acetaminophen (Acetaminophen 325 Mg Tab) 650 mg PO Q4H PRN PRN Reason: pain/fever Stop: 06/02/20 19:31 Al Hydrox/Mg Hydrox/Simethicone (Aluminum/Magnesium Susp 30 Ml Udc) 30 ml PO Q6H PRN PRN Reason: Dyspepsia Stop: 06/02/20 19:31 Magnesium Hydroxide (Magnesium Hydroxide Susp 30 Ml Udc) 30 ml PO Q6H PRN PRN Reason: Constipation Stop: 06/02/20 19:31 Ondansetron HCl (Ondansetron Inj 2 Mg/Ml 2 Ml Vial) 4 mg IV Q6H PRN PRN Reason: Nausea Stop: 06/02/20 19:31 Polyethylene Glycol (Polyethylene (Miralax) 17 Gm Pack) 17 gm PO DAILY PRN PRN Reason: Constipation Stop: 06/02/20 19:31
[2020-05-04] MEDS ORDERED: hydrOXYzine HCl 25 MG TAB PO PRN (22:13)
[2020-05-04] MEDS ORDERED: PROMETHAZINE HCL 25 MG TAB PO PRN (22:15)
--- NOTE | 2020-05-05 00:12 | Electrocardiogram Report ---
Test Reason : Blood Pressure : / mmHG Vent. Rate : 070 BPM Atrial Rate : 070 BPM P-R Int : 148 ms QRS Dur : 106 ms QT Int : 384 ms P-R-T Axes : 014 069 038 degrees QTc Int : 414 ms Sinus rhythm with marked sinus arrhythmia Otherwise normal ECG When compared with ECG of 16-JAN-2013 11:54, No significant change was found Confirmed by Giorgio Linn ([id number]) on 05/05/2020 12:11:48 AM Referred By: REFERRED SELF Confirmed By:Giorgio Linn
--- NOTE | 2020-05-05 12:18 | Discharge Summary ---
Date of Service May 05, 2020 Admission HPI Per Admitting Provider This is a 30 year old M with significant PMH of ADHD and alcohol abuse who presents to ED 2/2 to suicidal ideations x 1 day. He has been undergoing a lot of stress and recently became more depressed. His last alcoholic drink was 2 months ago. Recently his fiance left him as well as his kids. Continuing to get more depressed. His plan would be to, "take a bunch of sleeping pills and alcohol." He has never felt like this in the past. He denies any recent illness, f/c/s, chest pain, sob, cough, n/v/d, abdominal pain, change in bowel or urinary habits. In ED he did test positive for SARS-COV2. Hospitalist service requested to admit due to +Covid. Lab work up unremarkable with CBC, CMP and TSH, but urine +THC. Of significance pt has an aversion to medications. States he medicates with marijuana. Has daily headaches. Hx of HTN in the past and his mother used to, "push meds." Is refusing to take medications. Admission Exam Per Admitting Provider On examination Hemodynamically stable with high blood pressure of systolic 165 and diastolic 111 Chest-clear to auscultate bilaterally Heart-S1-S2 regular no murmur, Abdomen soft-nontender,, bowel sound present Extremities-negative for any edema INTRAVENOUS THERAPY NURSE- alert,alert and oriented x3, no focal sensory and motor deficit appreciated Principal Diagnosis SI-resolved COVID-19 infection Marijuana use h/o alcohol dependence, currently sober Discharge Exam CONSTITUTIONAL: WNWD, vitals as above, generally well-appearing EYES: normal conjunctivae, no scleral icterus ENT: external ear and nose normal, MMM RESPIRATORY: clear to auscultation bilaterally, no crackles, rales or wheezes, normal respiratory effort CARDIOVASCULAR: regular rate and rhythm, S1 and 2 heard without murmurs, gallops or rubs, no JVD, no peripheral edema GASTROINTESTINAL: soft, nontender, nondistended, no guarding MUSCULOSKELETAL: strength 5/5 throughout, head is normocephalic and atraumatic SKIN: warm and dry NEUROLOGIC: No facial palsy, no dysarthria. CN 2-12 grossly intact, no sensory deficit, normal cognition, normal speech, no tremor PSYCHIATRIC: alert cooperative and oriented to person, place and time. Discharge Data Allergies Allergy/AdvReac Type Severity Reaction Status Date / Time No Known Allergies Unverified 05/03/20 16:26 Consultations 05/03/20 17:01 Consult Psychiatry Routine 05/03/20 17:07 ED Decision to Admit Stat 05/03/20 19:32 Consult Case Management - Discharge Planning Routine 05/03/20 20:57 Consult Behavioral Health Liaison Routine Ordered Studies [facility], [phone] XRay Report Patient: TRACI INMANAdmit Date: 05/03/20MR#: [id number]: [address]:[id number]: Date: 1990[facility] Zip: [place] [id number]: 30Location: EDSex: MRoom/Bed:Att Phy:Diagnosis: MHIDPri Phy: Etienne Ramírez MD(MICK)Service Date: 05/03/20Fa Phy:Interpreting Phy: Jorge Nogueira MDAdmit Phy: Ordering Phy: Lynn Magana PA-C cc: ~ XR chest 1V portable CLINICAL HISTORY: Cough and shortness of breath COMPARISON STUDY: 01/16/2013 FINDINGS: The heart is at the upper limits of normal in size. There is no failure. No focal pulmonary consolidation. There are no pleural effusions.[ IMPRESSION: No active disease in the chest. ACT 112: Negative or not required by law. Electronically signed by: Jorge Nogueira M.D. 05/03/2020 6:33 PM Dictated: 05/03/201831Transcribed: 05/03/201831 Hospital Course (1) COVID-19: Asymptomatic. CXR is clear. No oxygen requirements. No indication for treatment or supportive care efforts at this time. May be a candidate for outpatient Mab infusion, however, he would need to check with his dr first. (2) Suicidal ideation: The patient continued to deny any further suicidal ideations or safety concerns. Psychiatry team saw the patient throughout his hospitalization and felt he was appropriate for discharge and low risk for harming himself or others. He was set up with outpatient therapy through [facility]. (3) History of ETOH abuse: Sober for the past two months and reportedly smokes marijuana daily. Pt received Ativan with improvement, however, we discussed why benzos are not a good option for him m[facility]p. Vistaril PRN given. (4) Elevated blood pressure reading: Likely related to withdrawal from marijuana and/or stress from the situation. Follow-up with PCP for repeat BP reading. (5) Attention deficit hyperactivity disorder: has a h/o medication use for this but currently he is not medicated. (6) Marijuana dependence: Treat anxiety PRN with Vistaril. Ativan only for severe symptoms. At time of discharge she was mentating and ambulating at baseline and tolerating p.o. He reported resolution of suicidal ideations and was in a very positive good mood overall. He was oriented and answering questions and very cooperative with staff. Physical exam was unremarkable. He was sent home in stable condition with close primary care follow-up recommended. He was given isolation guidelines regarding his Covid status. He verbalized understanding with intent to comply. Total Time Total Time Spent Total Time Spent (In Minutes): 30 Total Time Includes: Examination of the Patient, Discharge Planning, Medication Reconciliation and Communication With Other Providers Discharge Plan Discharge Items Patient Disposition: Home - Self-Care Reason For Visit: SUICIDAL IDEATIONS Discharge Diagnosis: SI-resolved COVID-19 infection Marijuana use h/o alcohol dependence, currently sober Condition on Discharge: Good Activity: Resume your previous activity Non-emergency contact: Primary Care Provider Call non-emergency contact if: you have any medication questions, your symptoms worsen, your pain is not controlled, your pain is worsening, your pain is unusual for you, your pain is concerning for you and you have a fever Follow-up/Referrals: Etienne Ramírez MD [Primary Care Provider] - 05/09/20 11:20 am (Date & Time 05/09/2020 11:20 AM Provider Etienne Ramírez MD Department Family Practice [facility] PLEASE NOTE THAT THIS IS A TELEPHONE CALL APPOINTMENT. THE PHYSICIAN WILL CALL YOU AT THE APPOINTMENT TIME. IF YOU HAVE ANY QUESTIONS, PLEASE CALL ) Diet: Regular Addtl Attending Provider Instructions: Please seek immediate medical attention if your symptoms return. You have been referred to [facility] for follow-up from a mental health standpoint, and they should be in touch with you by phone within the next 1-2 days regarding an appointment. If you need to speak with someone immediately, you can call 911 or contact the National Suicide Prevention Lifeline at (4-241-555-LOFM) Congratulations on your sobriety! It is recommended that you followup with your primary care physician within 1-2 weeks of hospital discharge to update them on how you are doing with your progress, and to touch base on the status of your COVID-19 infection. It was a pleasure taking care of you! Please call if you have any questions or problems. You can reach a [facility] hospitalist on duty at [facility] 24 hours a day by calling [phone]. Take care of yourself. Amada Godoy DO [facility]ist Pending Studies at Discharge: No Stand-Alone Forms: My [facility] Medications and DC Order Prescriptions: No Action No Known Home Medications RF: 0 Discharge Orders: Discharge Order (Routine); Ordered 05/05/20 Ordered By: Amada Godoy Admission Data Admit Date/Time: 05/03/20 17:04 Attending Provider: Amada Godoy Admit Provider: Caitlyn Busby Primary Care Provider: Etienne Ramírez Other Providers: Yoli Schaeffer ; Caitlyn Busby Other Interventions: Discharge Summary Assessment (RN) Last Done: 05/05/20 13:53 PSY Traffic Circuit Engineer Assessment Last Done: 05/04/20 10:32 PSY Family Therapy Session Last Done: 05/04/20 13:24
--- NOTE | 2020-05-05 12:46 | Psychiatric Progress Note ---
Date of Service May 05, 2020 Impression / Recommendations Impression Dr. Sylvia Olivo was directly involved in review and discussion of the patient's case and participated in medical decision making regarding treatment recommendations. RECOMMENDATIONS: 05/04 - Psychiatric consultation requested to evaluate patient for suicidality. Pt presented to ED for mental health evaluation, having been brought to the ED by police. Due to patient's COVID+ status, he was admitted medically to the COVID unit with psychiatric service following closely to assist with safety and discharge planning. - Pt denies suicidality presently, but events occurring prior to admission are a bit more concerning than initially reported. Pt admits that he had thoughts to end his life, and is now sharing that he did purchase a bottle of melatonin with the specific intent to overdose on the medication (believing this action could have lethal consequences). Pt will require thorough safety planning prior to discharge to ensure he is not at acute risk of harm to self or others at the time he is discharged. Recommend ongoing medical admission for monitoring of safety and mood until these steps can be taken. - Pt did agree to a phone meeting with his mother to discuss safety and discharge planning. Specifically, we anticipate discussing recommendation for outpatient treatment, securing medications, securing/removing guns and other weapons in home, and involving his mother as part of his support network. - Pt did agree to referral for outpatient therapy at [facility] - we will assist with securing an appointment to continue outpatient treatment. - At present, patient is declining to consider psychotropic medications. He denies depressive symptoms prior to 3 weeks ago when his significant other left the home. He admits to feeling depressed at that time, but denies other periods of persistently depressed mood or specific anxiety concerns. Medication options could be considered if mood symptoms worsen or suicidality recurs. First-line treatment would include reasonable trial of an SSRI to target depressive symptoms. If desired, we are happy to discuss during his stay. Otherwise, patient would likely be able to get medication management through [facility] as well. - There is a 302 petitioning statement on the patient's chart. Should patient demand to leave [facility], we would encourage contacting [employer]. delegates to secure a 302 warrant until medically cleared or until safe and appropriate discharge plans are in place. We are happy to assist with this process as needed. - We appreciate the opportunity to participate in the care of this patient. Please reach out to our service with any additional questions or updates. 1/21 - Pt denies SI or any current safety concerns related to potential discharge. - He was informed of therapy appointment scheduled for 05/09 at 11:00am - telehealth unless he is notified otherwise. - Pt reports his is grateful for information covered in the workbook and assistance provided by our team members. He was encouraged to reach out to our service with any additional questions or concerns. - Pt did complete a written safety plan, which will be scanned into his chart. - Case reviewed with Dr. Godoy, patient seems to be psychiatrically appropriate for discharge - no longer seeming to be at acute risk of harm to self or others. (1) Suicidal ideation: (2) Acute stress reaction causing mixed disturbance of emotion and conduct: (3) History of ETOH abuse: (4) COVID-19: Risk Factors Assessment Do You Have Access To A Gun?: Yes (admits to owning several guns) Interval History Identifying Information 30-year-old male admitted medically on 05/03/2020 after presenting to the ED via police after reaching out to crisis services to express suicidal ideation. Pt reported plan to overdose on sleeping pills and alcohol. During work-up for medical clearance for psychiatric referrals, the patient was found to be COVID positive and therefore admitted to the COVID unit with psychiatric consultation. Chief Complaint "I'm doing SO much better." Review of Systems Notes Constitutional: denied Cardiovascular: denied Respiratory: denied Gastrointestinal: denied Neurological: denied Psychiatric: denies symptoms other than stated above Total of at least 10 systems reviewed, pertinent positives as above and in HPI. Telehealth Telehealth Telehealth Options: Telephone only For the duration of the visit, provider was performing the assessment from: The same facility as the patient After establishing a telemedicine visit, patient was: Patient/authorized rep acknowledged consent and understanding and Gave permission to continue telehealth session Subjective Subjective Patient's case was reviewed during morning report with psychiatric nurse liaison and supervising psychiatrist. Updates discussed with primary hospitalist team as well regarding recommendations. We were able to secure a therapy appointment at [facility] for Tuesday 05/09 at 11:00am. This provider called patient's room phone today to assess progress since admission. He admits he had several moments yesterday where he was "caught at a bad time." He admits that he was able to process these frustrations with our staff and was able to appreciate that there are more perspectives to most situations than just his own. Pt does feel that taking the time to "take a step back and appreciate where other people are coming to the situation from" is something he hopes to continue to work on, as he feels it will benefit him in many areas of his life. Pt is appreciative of ability to take the [facility] workbook home with him, as he felt working through many of the sections was helpful for him. The patient also states that he was able to get some helpful support from his caregivers here in the hospital, and is now feeling "100% better." He is somewhat conflicting in his reports, initially stating "it's like a weight relieved, my ex is now my ex. I don't have to keep busting over her anymore." He later stated, however, that he has been talking with her during his stay and they have been working on ways to improve their relationship. He states their conversations have not been distressing to him. The patient does have hope about possible custody hearings in the future, but feels he has adequate support to deal with this. Pt states the family meeting held yesterday was beneficial in allowing him to realize "I have more support than I initially understood. I can ask for help and not feel guilty." Pt denies any continued suicidal ideation or self-harm thoughts. Pt was informed of therapy appointment and is agreeable to ensure he is available to complete this initial intake with [facility]. He verbalizes appreciation of services and denies other needs. Physical Exam Psychiatric Orientation: alert, oriented x 3 and cooperative Speech: normal rate/rhythm/volume of speech Mood: no depressed mood ("100% better") Thought Process: goal directed thought process, clear/coherent thought process and thought association intact Thought Content: reality based without delusions; no hopelessness and no worthlessness Suicidal Thoughts: denies suicidal thoughts, denies suicidal plan and denies suicidal intent Homicidal Thoughts: denies homicidal thoughts Hallucinations: no auditory hallucinations and no visual hallucinations Cognition: recent memory grossly intact, attention grossly intact and language grossly intact Estimated Intelligence: consistent with education level Insight: + fair insight Judgement: + fair judgement Vital Signs (Past 24 Hours) Last Vital Signs Temp 37.1 C 05/05/20 09:42 Pulse 104 H 05/05/20 09:42 Resp 22 05/05/20 09:42 BP 143/92 H 05/05/20 09:42 Pulse Ox 96 05/05/20 09:42 Results & Data ([facility]) Current Inpatient Medications Current Inpatient Medications: Current Inpatient Medications Acetaminophen (Acetaminophen 325 Mg Tab) 650 mg PO Q4H PRN PRN Reason: pain/fever Stop: 06/02/20 19:31 Al Hydrox/Mg Hydrox/Simethicone (Aluminum/Magnesium Susp 30 Ml Udc) 30 ml PO Q6H PRN PRN Reason: Dyspepsia Stop: 06/02/20 19:31 Hydroxyzine HCl (Hydroxyzine Hcl 25 Mg Tab) 25 mg PO Q8H PRN PRN Reason: anxiety Stop: 06/03/20 22:12 Magnesium Hydroxide (Magnesium Hydroxide Susp 30 Ml Udc) 30 ml PO Q6H PRN PRN Reason: Constipation Stop: 06/02/20 19:31 Polyethylene Glycol (Polyethylene (Miralax) 17 Gm Pack) 17 gm PO DAILY PRN PRN Reason: Constipation Stop: 06/02/20 19:31 Promethazine HCl (Promethazine Hcl 25 Mg Tab) 25 mg PO Q6H PRN PRN Reason: Nausea And Vomiting Stop: 06/03/20 22:14 Mental Health & Subst Abuse Tx Psychiatrist Name of Psychiatrist: [facility] Psychiatrist's Date of Appointment with Psychiatrist: 05/09/20 Time of Appointment with Psychiatrist: 1100 Psychiatric Appointment Comment: [phone] - telehealth unless otherwise noted Psychiatrist Release of Information: Obtained, Reviewed and Signed Therapist Name of Therapist: [facility] Therapist's Therapy Appointment Comment: [phone] Post Discharge Appointments Primary Care Physician Name Of Family Doctor: Dr. Ramírez Contact Information Discharge
[2020-05-06 00:12] LABS: Marijuana Quant, GCMS Urine 450 ng/mL (<5)
== END 2020-05-05 14:38 | disposition home or self-care (01) | DRG 881 ==
LOC: ED 15:02 → SUATTDRO 17:04 → 3E 17:04